=== PATIENT | female | born 1985 | race Caucasian/White ===

== ENCOUNTER 2018-03-04 08:23 | Inpatient (IN) | payer MEDICAID ==
[~2018-03-04 08:23] MED LIST: CARBOPROST 250 MCG INJ; CEFAZOLIN 1 GM INJ; SUCCINYLCHOLINE CHLORIDE 100 MG/5 ML SYG IV
[2018-03-04] MEDS: LACTATED RINGER'S 1,000 ML IV (08:59)
[2018-03-04] MEDS ORDERED: OXYTOCIN 30 UNITS/LR 500 ML IV (09:00)
[2018-03-04] MEDS ORDERED: BUTORPHANOL 2 MG INJ IV (09:00)
[2018-03-04 09:37] LABS: ADD MAN DIFF? NO
[2018-03-04 09:43] LABS: BASOPHILS % 0.3 % (0.0-2.0); EOSINOPHILS % 0.3 % (0.0-7.0); HEMATOCRIT 42.6 % (37.0-47.0); LYMPHOCYTES # 2.1 10^3/ul (0.8-2.9); LYMPHOCYTES % 19.1 % (15.0-51.0); MEAN CORPUSCULAR HEMOGLOBIN 28.2 pg (29.0-33.0); MEAN CORPUSCULAR HGB CONC 32.9 g/dl (32.0-37.0); MEAN CORPUSCULAR VOLUME 85.9 fl (82.0-101.0); MEAN PLATELET VOLUME 11.7 fl (7.4-10.4); MONOCYTE # 0.5 10^3/ul (0.3-0.9); MONOCYTES % 4.4 % (0.0-11.0); NEUTROPHIL # 8.1 10^3/ul (1.6-7.5); NEUTROPHILS % 75.4 % (39.0-77.0); PLATELET COUNT 195 10^3/UL (140-415); RED BLOOD COUNT 4.96 10^6/ul (4.20-5.40); RED CELL DISTRIBUTION WIDTH 18.1 % (11.5-14.5)
[2018-03-04 09:43] LABS: WHITE BLOOD COUNT 10.7 10^3/ul (4.8-10.8)
[2018-03-04] MEDS: OXYTOCIN 30 UNITS/LR 500 ML IV ×5 (10:01→21:33)
[2018-03-04 10:14] LABS: INR 0.96; PROTIME 12.9 Sec (11.9-14.9)
[2018-03-04 10:15] LABS: PARTIAL THROMBOPLASTIN TIME 29.5 Sec (25.0-35.0)
[2018-03-04] MEDS: MISOPROSTOL 200 MCG TAB PR ×2 (11:07→13:17)
[2018-03-04] MEDS ORDERED: PROPOFOL 20 ML ×2 (11:19→11:44)
[2018-03-04] MEDS ORDERED: FENTAnyl 50 MCG/ML VIAL (11:20)
[2018-03-04] MEDS ORDERED: ONDANSETRON 4 MG INJ (11:20)
[2018-03-04] MEDS ORDERED: METOCLOPRAMIDE 10 MG INJ (11:20)
[2018-03-04] MEDS ORDERED: MIDAZOLAM 1 MG/ML 2 ML INJ (11:20)
[2018-03-04 11:53] LABS: ALANINE AMINOTRANSFERASE 26 IU/L (13-69); ALBUMIN 3.7 g/dl (3.3-4.9); ALBUMIN/GLOBULIN RATIO 1.05; ALKALINE PHOSPHATASE 133 IU/L (42-121); ANION GAP 18 (8-16); ASPARTATE AMINO TRANSFERASE 32 IU/L (15-46); BILIRUBIN,INDIRECT 0.2 mg/dl (0-1.1); BILIRUBIN,TOTAL 0.2 mg/dl (0.2-1.3); BLOOD UREA NITROGEN 11 mg/dl (7-20); CALCIUM 8.7 mg/dl (8.4-10.2); CARBON DIOXIDE 19 mmol/L (21-31); CHLORIDE 107 mmol/L (97-110); CREATININE 0.51 mg/dl (0.44-1.00); GLUCOSE 101 mg/dl (70-220); POTASSIUM 4.4 mmol/L (3.5-5.1); SODIUM 140 mmol/L (135-144); TOTAL PROTEIN 7.2 g/dl (6.1-8.1); URIC ACID 4.9 mg/dl (3.1-7.9)
[2018-03-04 13:12] LABS: ADD UMIC YES; UR ASCORBIC ACID NEGATIVE (NEGATIVE); UR BILIRUBIN (Dip) NEGATIVE (NEGATIVE); UR BLOOD (Dip) NEGATIVE (NEGATIVE); UR CLARITY CLEAR (CLEAR); UR COLOR YELLOW (YELLOW); UR GLUCOSE (Dip) NEGATIVE (NEGATIVE); UR KETONES (Dip) NEGATIVE (NEGATIVE); UR LEUKOCYTE ESTERASE (Dip) NEGATIVE Leu/ul (NEGATIVE); UR MUCUS FEW /HPF (NONE SEEN); UR NITRITE (Dip) NEGATIVE (NEGATIVE); UR RBC 1 /HPF (0-5); UR SPECIFIC GRAVITY (Dip) 1.018 (1.003-1.030); UR TOTAL PROTEIN (Dip) 2+ mg/dl (NEGATIVE); UR UROBILINOGEN (Dip) NEGATIVE (NEGATIVE); UR WBC 1 /HPF (0-5)
[2018-03-04] MEDS: CARBOPROST 250 MCG INJ IM (13:16)
[2018-03-04] MEDS: LIDOCAINE 1% (MPF) 30 ML INJ INJ (13:16)
[2018-03-04] MEDS: METHYLERGONOVINE 0.2 MG INJ IM (14:09)
[2018-03-04 14:20] LABS: ADD MAN DIFF? NO; BASOPHILS % 0.1 % (0.0-2.0); EOSINOPHILS % 0.1 % (0.0-7.0); HEMATOCRIT 35.6 % (37.0-47.0); HEMOGLOBIN 11.8 g/dl (12.0-16.0); LYMPHOCYTES # 1.8 10^3/ul (0.8-2.9); LYMPHOCYTES % 11.6 % (15.0-51.0); MEAN CORPUSCULAR HEMOGLOBIN 28.7 pg (29.0-33.0); MEAN CORPUSCULAR HGB CONC 33.1 g/dl (32.0-37.0); MEAN CORPUSCULAR VOLUME 86.6 fl (82.0-101.0); MEAN PLATELET VOLUME 10.7 fl (7.4-10.4); MONOCYTE # 0.7 10^3/ul (0.3-0.9); MONOCYTES % 4.7 % (0.0-11.0); NEUTROPHIL # 12.5 10^3/ul (1.6-7.5); NEUTROPHILS % 83.1 % (39.0-77.0); PLATELET COUNT 178 10^3/UL (140-415); RED BLOOD COUNT 4.11 10^6/ul (4.20-5.40); RED CELL DISTRIBUTION WIDTH 17.8 % (11.5-14.5)
[2018-03-04 14:20] LABS: WHITE BLOOD COUNT 15.1 10^3/ul (4.8-10.8)
[2018-03-04] MEDS ORDERED: DIBUCAINE 1% 30 GM OINT PR (21:30)
[2018-03-04] MEDS ORDERED: ACETAMINOPHEN 325 MG TAB PO (21:30)
[2018-03-04 22:36] LABS: RAPID PLASMA REAGIN NONREACTIVE (NR)
[2018-03-04] MEDS: IBUPROFEN 600 MG TAB PO (23:23)
[2018-03-04] MEDS: BENZOCAINE 20% 56 ML SPRAY TOP (23:25)
[2018-03-04] MEDS: WITCH HAZEL/GLYCERIN PAD PR (23:25)
[2018-03-04] MEDS: LANOLIN 7 GM TUBE TOP (23:25)
[2018-03-05] MEDS: IBUPROFEN 600 MG TAB PO ×3 (05:50→17:42)
[2018-03-05] MEDS: SENNA/DOCUSATE NA (8.6MG/50MG) TAB PO ×2 (08:56→20:56)
[2018-03-05 09:38] LABS: ADD MAN DIFF? NO
[2018-03-05 09:47] LABS: WHITE BLOOD COUNT 8.6 10^3/ul (4.8-10.8)
[2018-03-05 09:48] LABS: BASOPHILS % 0.3 % (0.0-2.0); EOSINOPHILS % 0.5 % (0.0-7.0); HEMATOCRIT 28.7 % (37.0-47.0); HEMOGLOBIN 9.6 g/dl (12.0-16.0); LYMPHOCYTES # 2.1 10^3/ul (0.8-2.9); LYMPHOCYTES % 23.9 % (15.0-51.0); MEAN CORPUSCULAR HEMOGLOBIN 28.9 pg (29.0-33.0); MEAN CORPUSCULAR HGB CONC 33.4 g/dl (32.0-37.0); MEAN CORPUSCULAR VOLUME 86.4 fl (82.0-101.0); MEAN PLATELET VOLUME 10.9 fl (7.4-10.4); MONOCYTE # 0.4 10^3/ul (0.3-0.9); MONOCYTES % 4.5 % (0.0-11.0); NEUTROPHIL # 6.1 10^3/ul (1.6-7.5); NEUTROPHILS % 70.3 % (39.0-77.0); PLATELET COUNT 153 10^3/UL (140-415); RED BLOOD COUNT 3.32 10^6/ul (4.20-5.40); RED CELL DISTRIBUTION WIDTH 18.2 % (11.5-14.5)
[2018-03-05 21:49] LABS: COLLECTION PERIOD 24 hrs
[2018-03-05 22:35] LABS: COLLECTION PERIOD 24 hrs; CREATININE CLEARANCE 254.2 mls/min (84.0-162.0); CREATININE,URINE RANDOM 43.42 mg/dl (20-320); SCRET 0.51 mg/dl (0.44-1.00); VOLUME 4300 ml/24hrs
[2018-03-05 22:36] LABS: VOLUME 4300 mls
[2018-03-05 22:38] LABS: 24HR URINE TOTAL PROTEIN > 600.0 mg/24hrs (42.0-225.0)
[2018-03-06] MEDS: IBUPROFEN 600 MG TAB PO ×3 (00:26→11:38)
[2018-03-06] MEDS: MEASLES,MUMPS,RUBELLA VACCINE INJ SC* (09:00)
[2018-03-06] MEDS: SENNA/DOCUSATE NA (8.6MG/50MG) TAB PO (09:01)
== END 2018-03-06 15:21 | disposition home or self-care (01) | DRG 767 ==
LOC: OBT 08:23 → L-D 08:23 → OBT 08:37 → L-D 08:33 → PP1 20:53
PROC: 10E0XZZ Delivery of Products of Conception, External Approach (ICD-10-PCS; principal; 2018-03-04)
PROC: 0UDB7ZZ Extraction of Endometrium, Via Natural or Artificial Opening (ICD-10-PCS; 2018-03-04)
PROC: 0HQ9XZZ Repair Perineum Skin, External Approach (ICD-10-PCS; 2018-03-04)
DX: O70.0 First degree perineal laceration during delivery (principal); Z37.0 Single live birth; O72.1 Other immediate postpartum hemorrhage; Z3A.39 39 weeks gestation of pregnancy
CPT/HCPCS: 80053; 81001; 82575; 84156; 84560; 85025; 85610; 85730; 86592; 86850; 86900; 86901; 86920